=== PATIENT | male | born 1970 | race Caucasian/White ===

== ENCOUNTER 2021-05-06 09:43 | Emergency (ER) | payer SELFPAY ==
--- NOTE | ~2021-05-06 | XR_ITS ---
EXAMINATION: XR KNEE, RIGHT CLINICAL INFORMATION: Knee pain. COMPARISON: None TECHNIQUE: Four views of the right knee. FINDINGS: There is loss of tricompartment joint space with periarticular spurring. No visible acute fracture or dislocation seen. There is anterior superior patellar enthesophyte. There is small suprapatellar joint effusion. No acute fracture or dislocation seen. XR/XR knee RT 4V IMPRESSION: Small anterior superior patellar enthesophyte with small suprapatellar joint effusion. No visible acute fracture or dislocation seen.
[2021-05-06 09:47] VITALS: BP 138/94; PULSE 94; RESP 18; TEMP 36.6; O2SAT 98; BMI 28.8
--- NOTE | 2021-05-06 11:32 | ED_ITS ---
HPI - Extremity Problem General Chief complaint: Extremity Problem Stated complaint: knee pain Time Seen by Provider: 05/06/21 11:28 Source: patient and family Mode of arrival: ambulatory Limitations: language barrier (Com[place]an-speaking) History of Present Illness HPI Narrative: 50-year-old male with a past medical history of gout who currently resides in [place] is here visiting family with his at bedside who speaks [place] presenting to the ED with complaints of a gout flare up over the past few days worse today to the right knee. Reports that he normally takes colchicine indomethacin although he does not have his prescription medications here. He denies any fevers, chills, dizziness, headache, neck pain/stiffness, chest pain or shortness of breath, dyspnea on exertion, orthopnea, palpitations, calf tenderness, extremity edema or any other symptoms complaints or concerns at this time. MD Complaint: extremity pain and extremity swelling Onset (ago): day(s) Pain Consistency: constant Location: right and knee Severity scale (1-10): >10 Quality: aching, sharp and constant Radiation: none Relieving factors: nothing Exacerbating factors: range of motion, weight bearing, walking and palpation Associated symptoms: denies other symptoms Context: history of gout Related Data Previous Rx's Medication Instructions Recorded colchicine 0.6 mg tablet 0.6 mg PO BID 7 Days #14 tab 05/06/21 indomethacin 50 mg capsule 50 mg PO TID 5 Days #15 cap 05/06/21 oxycodone 5 mg tablet 5 mg PO Q6H PRN #14 tab 05/06/21 prednisone 20 mg tablet 40 mg PO DAILY 5 Days #10 tab 05/06/21 Allergies Allergy/AdvReac Type Severity Reaction Status Date / Time No Known Allergies Allergy Verified 05/06/21 11:30 Review of Systems Review of Systems: Constitutional : No Weight loss, No Fever, No Chills, No Night Sweats, No Fatigue, No Malaise ENT/Mouth : No Hearing loss, No Ear Pain, No Nasal Congestion, No Sinus Pain, No Hoarseness, No sore throat, No Rhinorrhea, No Swallowing Difficulty Eyes: No Eye Pain, No Swelling, No Redness, No Foreign Body, No Discharge, No Vision Changes Cardiovascular : No Chest Pain, No SOB, No Dyspnea on Exertion, No Orthopnea, No Edema, No Palpitations Respiratory : No Cough, No Sputum, No Wheezing, No Smoke Exposure, No Dyspnea Gastrointestinal : No Nausea, No Vomiting, No Diarrhea, No Constipation, No abdominal Pain, No Hematochezia, No Melena Genitourinary : no irregular bleeding, No Dysuria, No Urinary Frequency, No Hematuria, No Urinary Incontinence, No Urgency, No Flank Pain, No Urinary Flow Changes, No Hesitancy Musculoskeletal : Positive joint pain/swelling, No myalgias Skin : No Skin Lesions, No rash Neuro : No Weakness, No Numbness, No Paresthesias, No Loss of Consciousness, No Dizziness, No Headache Psych : No Anxiety/Panic, No Depression, No SI/HI/AH/VH, No Social Issues, Heme/Lymph: No Bruising, No Bleeding,No Lymphadenopathy Endocrine : No Polyuria, No Polydipsia, No Temperature Intolerance Yes all other systems are reviewed and are negative REPLACED BY [facility] Past Medical History Attestation statement: The following information was validated with the patient. Medical History Gout Social History Social History Advance Directives: No Advance Directives Information Provided: No Physical Exam Vital Signs: Vital Signs: Last Vital Signs Temp 98 F 05/06/21 09:47 Pulse 94 05/06/21 09:47 Resp 18 05/06/21 09:47 BP 138/94 H 05/06/21 09:47 Pulse Ox 98 05/06/21 09:47 BMI result Body Mass Index 28.8 vital signs have been reviewed as normal and appeared to be correct. Blood pressure normal Heart rate normal. Respiration rate normal. Temperature normal. Oxygen saturation normal. Appearance: Alert. Oriented X3. No acute distress. Head: Normal external exam. Normocephalic. Atraumatic. Eyes: PERRLA. EOMI. Conjunctiva and sclera normal. Eyelids normal. ENT: Pharynx normal. Uvula midline. Moist mucous membranes. Neck: Normal inspection. Neck supple. FROM. CVS: Normal heart rate and rhythm. Respiratory: No respiratory distress. Painless inspiration. Skin: Skin warm and dry. Normal skin color. Normal skin turgor. No rashes/lesions/lacerations noted. Extremities: Patient moderate tense palpation to the right knee at the lateral aspect no erythema/ soft tissue swelling/obvious joint effusion or obvious ligamentous or tendon injury. No obvious signs of infection. No streaking noted. Patient has full range of motion of the right knee. No calf tenderness is noted. No lower extremity edema. Otherwise all other Extremities exhibit normal range of motion and nontender. Neuro: Oriented X 3. No motor deficit. No sensory deficit. Reflexes normal. Normal steady gait. No focal neuro deficits noted. Vascular: + radial pulses/+ 2 distal pedal pulses/+2 dorsalis pedis b/l. Normal cap refill. No cyanosis noted to upper extremity nails and lower extremity toes nails. Course Course Course Narrative: 50-year-old male with a past medical history of gout who currently resides in [place] is here visiting family with his at [facility] who speaks [place] presenting to the ED with complaints of a gout flare up over the past few days worse today to the right knee. Reports that he normally takes colchicine indomethacin although he does not have his prescription medications here. X-ray negative for any acute processes only revealed chronic changes I printed out the results and given to the patient. He showed me a picture on his phone of her prescription medications that he normally gets in [place] and he reports that he gets a shot normally or some medications through the vein that helps his pain immediately he is unsure the name of it. He also reports that he is usually prescribed indomethacin and colchicine although he does not have his prescribed medications. Therefore at this time will DC home with Toradol IM 30 mg. Start the patient on colchicine. Start the patient on prednisone. DC home with colchicine/prednisone/oxycodone. And instructions to return if any new or worsening symptoms and to follow up with primary care provider. Patient and at bedside understand and agree with this plan. MDM - Extremity (Nontraumatic) Medical Records Attestation: I reviewed the patient's medical records. Imaging Data Right knee x-ray: Attestation: I personally reviewed and interpreted this imaging study as follows: Radiologist's impression: FINDINGS: There is loss of tricompartment joint space with periarticular spurring. No visible acute fracture or dislocation seen. There is anterior superior patellar enthesophyte. There is? small suprapatellar joint effusion. No acute fracture or dislocation seen.? XR/XR knee RT 4V IMPRESSION: Small anterior superior patellar enthesophyte with small suprapatellar joint effusion. ? No visible acute fracture or dislocation seen. Discharge Plan Discharge Clinical Impression: Gout Patient Disposition: Home, Self-Care Instructions: Low Purine Diet (ED), Gout (ED) Prescriptions: New indomethacin 50 mg capsule 50 mg PO TID 5 Days Qty: 15 RF: 0 colchicine 0.6 mg tablet 0.6 mg PO BID 7 Days Qty: 14 RF: 0 oxycodone 5 mg tablet 5 mg PO Q6H PRN (Reason: pain) Qty: 14 RF: 0 prednisone 20 mg tablet 40 mg PO DAILY 5 Days Qty: 10 RF: 0 Referrals: Physician,None [Primary Care Provider] - 2 days (your pcp) Print Language: [place]an
[2021-05-06] MEDS: predniSONE 20 MG TABLET 60 MG PO (11:55)
[2021-05-06] MEDS: oxyCODONE HCl Immed Release 5 MG TABLET PO (11:56)
[2021-05-06] MEDS: Ketorolac Tromethamine 30 MG/ML VIAL IM (11:57)
[2021-05-06] MEDS: Colchicine 0.6 MG TABLET 1.2 MG PO (12:11)
== END 2021-05-06 12:14 | disposition home or self-care (01) ==
PROVIDERS: Emergency Provider Emergency Medicine
DX: M10.9 Gout, unspecified (principal); M25.561 Pain in right knee; Z79.899 Other long term (current) drug therapy
CPT/HCPCS: 73564; 96372; 99283; 99284; J1885